=== PATIENT | male | born 1950 | race Caucasian/White ===

== ENCOUNTER → 2019-07-19 15:06 | Outpatient (ROUT) | payer MEDICARE, OTHER, SELFPAY ==
[2019-07-19 15:27] LABS: Aspartate Aminotransferase 46 IU/L (17-59); BUN Creatinine Ratio 28.8 (6-22); Blood Urea Nitrogen 23 mg/dL (9-20); Calcium 9.7 mg/dL (8.4-10.2); Carbon Dioxide 30 mmol/L (22-32); Chloride 103 mmol/L (98-107); Cholesterol 142 mg/dL (140-199); Estimated Glomerular Filt Rate > 60.0 mL/min (>60); Glucose 85 mg/dL (80-110); HDL Cholesterol 61 mg/dL (40-60); HEMOLYSIS < 15 (0-50); LDL Cholesterol Calculated 67 mg/dL (<100); Potassium 4.5 mmol/L (3.4-5.1); Sodium 140 mmol/L (137-145); Triglycerides 68 mg/dL (35-150)
[2019-07-19 15:58] LABS: Prostate Specific Antigen 0.958 ng/mL (0.10-4.00)
== END ==
PROVIDERS: PCP Internal Medicine; Visit Provider Internal Medicine
DX: N40.0 Benign prostatic hyperplasia without lower urinary tract symptoms (principal); E78.2 Mixed hyperlipidemia; I10 Essential (primary) hypertension
CPT/HCPCS: 80048; 80061; 84153; 84450

== ENCOUNTER → 2020-07-23 14:55 | Outpatient (ROUT) | payer MEDICARE, OTHER, SELFPAY ==
[2020-07-23 15:28] LABS: Aspartate Aminotransferase 43 IU/L (17-59); Blood Urea Nitrogen 22 mg/dL (9-20); Calcium 9.4 mg/dL (8.4-10.2); Carbon Dioxide 28 mmol/L (22-32); Chloride 105 mmol/L (98-107); Cholesterol 143 mg/dL (140-199); Estimated Glomerular Filt Rate > 60.0 mL/min (>60); Glucose 96 mg/dL (80-110); HDL Cholesterol 64 mg/dL (40-60); HEMOLYSIS < 15 (0-50); LDL Cholesterol Calculated 67 mg/dL (<100); Potassium 4.7 mmol/L (3.4-5.1); Sodium 138 mmol/L (137-145); Triglycerides 60 mg/dL (35-150)
[2020-07-23 15:56] LABS: Prostate Specific Antigen 0.933 ng/mL (0.10-4.00)
== END ==
PROVIDERS: PCP Internal Medicine; Visit Provider Internal Medicine
DX: I10 Essential (primary) hypertension (principal); E78.2 Mixed hyperlipidemia; N40.0 Benign prostatic hyperplasia without lower urinary tract symptoms
CPT/HCPCS: 80048; 80061; 84153; 84450

== ENCOUNTER → 2022-07-26 08:48 | Outpatient (CLI) | payer MEDICARE, OTHER, SELFPAY ==
[2022-07-26 10:57] LABS: Hematocrit 47.3 % (41-53); Hemoglobin 16.1 g/dL (13.5-17.5); Mean Corpuscular HGB Conc 34.1 % (30-36); Mean Corpuscular Hemoglobin 31.5 PG (26-34); Mean Corpuscular Volume 92.6 fL (80-100); Platelet Count 174 X10^3/uL (150-400); Red Blood Cell Count 5.11 X10^6/uL (4.5-5.9); Red Cell Distribution Width 13.5 % (11.6-14.8); White Blood Cell Count 4.5 X10^3/uL (4.5-11.0)
[2022-07-26 11:31] LABS: Alanine Aminotransferase 27 IU/L (<50); Albumin 4.4 g/dL (3.5-5.0); Albumin Globulin Ratio 1.6 (1.0-2.8); Alkaline Phosphatase 103 U/L (38-126); Aspartate Aminotransferase 33 IU/L (17-59); BUN Creatinine Ratio 19.4 (6-22); Bilirubin Total 0.6 mg/dL (0.2-1.3); Blood Urea Nitrogen 18 mg/dL (9-20); Calcium 9.3 mg/dL (8.4-10.2); Carbon Dioxide 28 mmol/L (22-32); Chloride 102 mmol/L (98-107); Cholesterol 170 mg/dL (140-199); Estimated Glomerular Filt Rate > 60 mL/min (>60); Globulin 2.7 g/dL (1.7-4.1); Glucose 100 mg/dL (80-110); HDL Cholesterol 79 mg/dL (40-60); HEMOLYSIS < 15 (0-50); LDL Cholesterol Calculated 74 mg/dL (<100); Potassium 4.2 mmol/L (3.4-5.1); Sodium 139 mmol/L (137-145); Total Protein 7.1 g/dL (6.3-8.2); Triglycerides 85 mg/dL (35-150)
[2022-07-26 12:00] LABS: Prostate Specific Antigen 1.25 ng/mL (0.10-4.00)
[2022-07-26 12:02] LABS: TSH w/ Reflex to FT4 1.22 uIU/mL (0.47-4.68)
[2022-07-28 06:36] LABS: PSA Free % 44.6 % (.); PSA, Total 1.3 ng/mL (0.0-4.0)
== END ==
PROVIDERS: PCP Internal Medicine; Referring Provider Internal Medicine; Visit Provider Internal Medicine
DX: E78.2 Mixed hyperlipidemia (principal); N40.0 Benign prostatic hyperplasia without lower urinary tract symptoms; Z12.5 Encounter for screening for malignant neoplasm of prostate; R03.0 Elevated blood-pressure reading, without diagnosis of hypertension
CPT/HCPCS: 36415; 80053; 80061; 84153; 84154; 84443; 85027

== ENCOUNTER 2023-04-07 20:13 | Observation (INO) | payer MEDICARE, OTHER, SELFPAY ==
[2023-04-07] VITALS (8 sets, daily range): BP systolic 134–174; BP diastolic 79–114; PULSE 46–97; RESP 12–18; TEMP 37; O2SAT 94–99; BMI 25.8
--- NOTE | 2023-04-07 20:27 | DI.RAD.S_ITS ---
PROCEDURE: XR CHEST 1V INDICATIONS: chest pain TECHNIQUE: One view of the chest was acquired. COMPARISON: None. FINDINGS: Surgical changes and devices: None. Lungs and pleura: Lungs are clear. No pleural effusions or pneumothorax. Mediastinum: Mediastinal contours appear normal. Heart size is normal. Bones and chest wall: No suspicious bony lesions. Overlying soft tissues appear unremarkable. IMPRESSION: No acute cardiopulmonary findings. Dictated by: Nissa Colindres M.D. on 04/07/2023 at 21:59 Approved by: Nissa Colindres M.D. on 04/07/2023 at 22:00
[2023-04-07] MEDS: ASPIRIN 81 MG CHEW TAB 324 MG PO (20:32)
[2023-04-07 20:52] LABS: Add Manual Diff / Slide Review NO; Basophils Absolute Auto 0 /uL (0-100); Basophils Percent Auto 0.9 % (0-2); Eosinophils Absolute Auto 200 /uL (0-450); Eosinophils Percent Auto 3.7 % (2-4); Hematocrit 45.6 % (41-53); Hemoglobin 15.5 g/dL (13.5-17.5); Lymphocytes Absolute Auto 1500 /uL (1100-4500); Lymphocytes Percent Auto 33.8 % (25-40); Mean Corpuscular Hemoglobin 31.4 PG (26-34); Mean Corpuscular Volume 92.3 fL (80-100); Monocytes Absolute Auto 500 /uL (0-900); Monocytes Percent Auto 11.5 % (3-14); Neutrophils Absolute Auto 2200 /uL (1500-7000); Neutrophils Percent Auto 50.1 % (50-75); Platelet Count 198 X10^3/uL (150-400); Red Blood Cell Count 4.94 X10^6/uL (4.5-5.9); Red Cell Distribution Width 13.7 % (11.6-14.8); White Blood Cell Count 4.4 X10^3/uL (4.5-11.0)
[2023-04-07 20:55] LABS: INR 1.1 (0.9-1.3); Prothrombin Time 12.2 SECONDS (10.1-12.7)
[2023-04-07 21:00] LABS: Alanine Aminotransferase 26 IU/L (<50); Albumin Globulin Ratio 1.3 (1.0-2.8); Alkaline Phosphatase 94 U/L (38-126); Aspartate Aminotransferase 32 IU/L (17-59); BUN Creatinine Ratio 28.1 (6-22); Bilirubin Total 0.6 mg/dL (0.2-1.3); Blood Urea Nitrogen 25 mg/dL (9-20); Carbon Dioxide 29 mmol/L (22-32); Chloride 104 mmol/L (98-107); Creatine Kinase 113 U/L (55-170); Estimated Glomerular Filt Rate > 60 mL/min (>60); Globulin 3.2 g/dL (1.7-4.1); Glucose 132 mg/dL (80-110); HEMOLYSIS 37 (0-50); Lipase 68 U/L (23-300); Potassium 4.2 mmol/L (3.4-5.1); Sodium 139 mmol/L (137-145); Total Protein 7.2 g/dL (6.3-8.2)
[2023-04-07 21:11] LABS: Troponin I < 0.012 ng/mL (0.01-0.034)
[2023-04-07 21:15] LABS: PTT Partial Thromboplastin Tim 36 SECONDS (26-36)
--- NOTE | 2023-04-07 22:16 | ED.ARRPALP ---
HPI - Arrhythmia/Palpitations General Chief Complaint: Arrhythmia/Palpitations Stated Complaint: states developed a heart arrythmia Time Seen by Provider: 04/07/23 21:55 Source: patient and family Mode of arrival: Ambulatory History of Present Illness HPI narrative: Patient here with . Complains of palpitations that started possibly around 3:00 a.m. today. However he is uncertain that he had symptoms in the past week. Denies any chest pain or dyspnea. No dizziness or syncope. Denies any history heart attack strokes or diabetes. No history arrhythmia. Related Data Previous Rx's Medication Instructions Recorded rosuvastatin 10 mg tablet 10 mg PO DAILY #90 tabs 09/06/22 Allergies Allergy/AdvReac Type Severity Reaction Status Date / Time No Known Drug Allergies Allergy Verified 04/07/23 20:26 Review of Systems Review of Systems Narrative: GENERAL: negative chills, fatigue, malaise, fever, sweats. HEENT: negative sinus pain, ear pain, sore throat RESPIRATORY: negative dyspnea, cough CARDIOVASCULAR: negative chest pain, positive palpitations GASTROINTESTINAL: negative nausea, vomiting, abdominal pain : negative dysuria, frequency, hematuria MUSCULOSKELETAL: negative muscle or bony pain SKIN: negative rash, skin lesions NEUROLOGIC: negative weakness, numbness ROS Unobtainable: All systems reviewed & are unremarkable except as noted in HPI and below Patient History Medical History Actinic keratoses Cataracts, bilateral (~2015) Elevated blood pressure reading without diagnosis of hypertension History of colonic polyps History of DVT (deep vein thrombosis) (~2017) Medicare annual wellness visit, initial Mixed hyperlipidemia Surgical History Anesthesia H/O right knee surgery (~2015) Right patella fracture (~1960) Right patella fracture (~2017) Social History 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 EYES: Pupils equal round ENT: Mucous membranes moist. NECK: Trachea midline. CARDIOVASCULAR: Regular rate and rhythm without murmurs RESPIRATORY: Clear to auscultation. Breath sounds equal bilaterally. No wheezes, rales, or rhonchi. GASTROINTESTINAL: Abdomen soft, non-tender EXTREMITIES: No gross deformities. BACK: No flank tenderness. NEURO: AOx4. SKIN: Warm and dry PSYCH: Not anxious, is cooperative Initial Vital Signs Initial Vital Signs: Vital Signs Temperature 98.6 F 04/07/23 20:23 Pulse Rate 97 H 04/07/23 20:23 Respiratory Rate 18 04/07/23 20:23 Blood Pressure 164/114 H 04/07/23 20:23 Pulse Oximetry 99 04/07/23 20:23 Oxygen Delivery Method Room Air 04/07/23 20:23 Course Orders Ordered: ED Orders 04/07/23 20:27 XR chest 1V Stat EKG-12 Lead Stat 04/07/23 20:37 Complete Blood Count AUTO DIFF Stat Comprehensive Metabolic Panel Stat Lipase Stat Magnesium Stat PTT Partial Thromboplastin Eric Stat Prothrombin Time INR Stat Troponin & CK Cardiac Panel Stat Acetaminophen (Acetaminophen 325 Mg Tablet) 650 mg PO Q6H PRN PRN Reason: Fever/Mild Pain (1-10 Hydrocodone Bitart/Acetaminophen (Hydrocodone/Acet 5/325 Tablet) 2 tab PO Q4H PRN PRN Reason: Pain, Severe (5-10 Al Hydrox/Mg Hydrox/Simethicone (Mag Hydrox/Alum/Simeth 30 Ml Udc) 30 ml PO Q6HR PRN PRN Reason: Dyspepsia Apixaban (Apixaban 5 Mg Tablet) 5 mg PO BID [facility] Atorvastatin Calcium (Atorvastatin 20 Mg Tablet) 20 mg PO DAILY [facility] Calcium Carbonate (Calcium Carbonate 500 Mg Tab) 1,000 mg PO Q4HR PRN PRN Reason: Dyspepsia Naloxone HCl (Naloxone 0.4 Mg/Ml Vial) 0.2 mg IV Q2MIN PRN PRN Reason: Opiate Reversal Ondansetron HCl (Ondansetron 4 Mg/2 Ml Inj) 4 mg IV Q8HR PRN PRN Reason: Nausea And Vomiting Sennosides (Sennosides 8.6 Mg Tablet) 17.2 mg PO BEDTIME [facility] Discontinued Medications Aspirin (Aspirin 81 Mg Chew Tab) 324 mg PO NOW ONE Stop: 04/07/23 20:28 Last Admin: 04/07/23 20:32 Dose: 324 mg Documented By: AMU Vital Signs Vital signs: Vital Signs - 8 hr 04/07/23 20:23 04/07/23 21:34 04/07/23 21:35 Temperature 98.6 F Pulse Rate 97 H 69 49 L Respiratory Rate 18 13 13 Blood Pressure 164/114 H Pulse Oximetry 99 99 99 Oxygen Delivery Method Room Air 04/07/23 21:35 04/07/23 22:00 04/07/23 22:00 Temperature Pulse Rate 70 Respiratory Rate 16 Blood Pressure 152/84 H 162/104 H Pulse Oximetry 98 Oxygen Delivery Method 04/07/23 22:18 04/07/23 22:18 04/07/23 22:30 Temperature Pulse Rate 81 Respiratory Rate 12 Blood Pressure 174/97 H 147/79 H Pulse Oximetry 98 Oxygen Delivery Method 04/07/23 22:30 04/07/23 23:00 04/07/23 23:00 Temperature Pulse Rate 48 L 46 L Respiratory Rate 14 14 Blood Pressure 134/83 Pulse Oximetry 94 94 Oxygen Delivery Method 04/07/23 23:30 04/07/23 23:30 Temperature Pulse Rate 72 Respiratory Rate 15 Blood Pressure 135/88 Pulse Oximetry 96 Oxygen Delivery Method MDM - Arrhythmia/Palpitations Lab Data 04/07/23 20:37 04/07/23 20:37 Labs: Lab Results 04/07/23 04/07/23 04/07/23 Range/Units 20:37 20:37 20:37 WBC 4.4 L (4.5-11.0) X10^3/uL RBC 4.94 (4.5-5.9) X10^6/uL Hgb 15.5 (13.5-17.5) g/dL Hct 45.6 (41-53) % MCV 92.3 (80-100) fL MCH 31.4 (26-34) PG MCHC 34.0 (30-36) % RDW 13.7 (11.6-14.8) % Plt Count 198 (150-400) X10^3/uL Neut % (Auto) 50.1 (50-75) % Lymph % (Auto) 33.8 (25-40) % Archuleta % (Auto) 11.5 (3-14) % Eos % (Auto) 3.7 (2-4) % Baso % (Auto) 0.9 (0-2) % Neut # (Auto) 2200 (8254-7497) /uL Lymph # (Auto) 1500 (1207-5609) /uL Archuleta # (Auto) 500 (0-900) /uL Eos # (Auto) 200 (0-450) /uL Baso # (Auto) 0 (0-100) /uL PT 12.2 (10.1-12.7) SECONDS INR 1.1 (0.9-1.3) APTT 36 (26-36) SECONDS Sodium 139 (137-145) mmol/L Potassium 4.2 (3.4-5.1) mmol/L Chloride 104 (98-107) mmol/L Carbon Dioxide 29 (22-32) mmol/L BUN 25 H (9-20) mg/dL Creatinine 0.89 (0.66-1.25) mg/dL Estimated GFR > 60 (>60) mL/min BUN/Creatinine Ratio 28.1 H (6-22) Glucose 132 H (80-110) mg/dL Calcium 9.0 (8.4-10.2) mg/dL Magnesium 2.0 (1.6-2.3) mg/dL Total Bilirubin 0.6 (0.2-1.3) mg/dL AST 32 (17-59) IU/L ALT 26 (<50) IU/L Alkaline Phosphatase 94 (38-126) U/L Total Creatine Kinase 113 (55-170) U/L Troponin I < 0.012 (0.01-0.034) ng/mL NT-Pro-B Natriuret Pep (<125) pg/mL Total Protein 7.2 (6.3-8.2) g/dL Albumin 4.0 (3.5-5.0) g/dL Globulin 3.2 (1.7-4.1) g/dL Albumin/Globulin Ratio 1.3 (1.0-2.8) Lipase 68 (23-300) U/L TSH (0.47-4.68) uIU/mL Free T4 (0.78-2.19) ng/dL Ethyl Alcohol ( - 10) mg/dL 04/07/23 04/07/23 04/07/23 Range/Units 20:37 20:37 20:37 WBC (4.5-11.0) X10^3/uL RBC (4.5-5.9) X10^6/uL Hgb (13.5-17.5) g/dL Hct (41-53) % MCV (80-100) fL MCH (26-34) PG MCHC (30-36) % RDW (11.6-14.8) % Plt Count (150-400) X10^3/uL Neut % (Auto) (50-75) % Lymph % (Auto) (25-40) % Archuleta % (Auto) (3-14) % Eos % (Auto) (2-4) % Baso % (Auto) (0-2) % Neut # (Auto) (3345-3438) /uL Lymph # (Auto) (6507-1765) /uL Archuleta # (Auto) (0-900) /uL Eos # (Auto) (0-450) /uL Baso # (Auto) (0-100) /uL PT (10.1-12.7) SECONDS INR (0.9-1.3) APTT (26-36) SECONDS Sodium (137-145) mmol/L Potassium (3.4-5.1) mmol/L Chloride (98-107) mmol/L Carbon Dioxide (22-32) mmol/L BUN (9-20) mg/dL Creatinine (0.66-1.25) mg/dL Estimated GFR (>60) mL/min BUN/Creatinine Ratio (6-22) Glucose (80-110) mg/dL Calcium (8.4-10.2) mg/dL Magnesium (1.6-2.3) mg/dL Total Bilirubin (0.2-1.3) mg/dL AST (17-59) IU/L ALT (<50) IU/L Alkaline Phosphatase (38-126) U/L Total Creatine Kinase (55-170) U/L Troponin I (0.01-0.034) ng/mL NT-Pro-B Natriuret Pep 401 H (<125) pg/mL Total Protein (6.3-8.2) g/dL Albumin (3.5-5.0) g/dL Globulin (1.7-4.1) g/dL Albumin/Globulin Ratio (1.0-2.8) Lipase (23-300) U/L TSH 0.789 (0.47-4.68) uIU/mL Free T4 1.02 (0.78-2.19) ng/dL Ethyl Alcohol < 10 ( - 10) mg/dL Imaging Data Chest x-ray: Radiologist's Impresson: [address] [address] XRay Report Signed Patient: Amrik Ramirez MR#: [id number] : 1950 Acct:[id number] Age/Sex: 72 / M Date of Service: 04/07/23 Loc: ED Accession Number: [id number] ?? Procedure: XR chest 1V Ordering Provider: John Bustamante MD PROCEDURE:? XR CHEST 1V ? INDICATIONS:? chest pain ? TECHNIQUE:? One view of the chest was acquired.? ? COMPARISON:? None. ? FINDINGS:? ? Surgical changes and devices:? None.? ? Lungs and pleura:? Lungs are clear.? No pleural effusions or pneumothorax.? ? Mediastinum:? Mediastinal contours appear normal.? Heart size is normal.? ? Bones and chest wall:? No suspicious bony lesions.? Overlying soft tissues appear unremarkable.? ? IMPRESSION:? No acute cardiopulmonary findings. ? ? Dictated by: Nissa Colindres M.D. on 04/07/2023 at 21:59 ? ? Approved by: Nissa Colindres M.D. on 04/07/2023 at 22:00 ? [facility] Narrative Medical decision making narrative: Patient here with . Complains of palpitations that started possibly around 3:00 a.m. today. However he is uncertain that he had symptoms in the past week. Denies any chest pain or dyspnea. No dizziness or syncope. Denies any history heart attack strokes or diabetes. No history arrhythmia. After history and exam CBC CMP EKG troponin magnesium lipase chest x-ray cardiology consult MDM CC: Palpitations Complicating co-morbidities: None Data collected from: Patient and Medical records reviewed: No recent visits for this complaint Differential considered: Includes but not limited to atrial flutter atrial fibrillation SVT Exam documented above, pertinent findings include: Nontender chest Lab Test results independently reviewed as above. Pertinent findings: WBC 4.4 hemoglobin 15.5 INR 1.1 sodium 139 potassium 4.2 GFR greater than 60 troponin less than 0.012 Independently reviewed EKG atrial flutter with ventricular rate 81. Likely AV block. Imaging studies independently reviewed: Chest x-ray no acute process Consultations: 10:15 p.[address].. Spoke with cardiology Dr. Glass. Would not do cardioversion at this time as we do not no definitive time of onset. May be greater than 24 hours. Recommends Eliquis. Echo in the morning. Can set up for outpatient TAMIR cardioversion after office visit. Would need metoprolol succinate only if increase in heart rate. 11:50 p.m.. Spoke with hospitalist nurse practitioner, Cornelia, she will see patient for admission. Agrees no beta-blockers at this time. Treatments: Eliquis Re-evaluations: Reviewed results with patient and and my discussion with Cardiology and he does agree for admission and balance of treatment and evaluation Discussion: Upright for admission for echocardiogram in the morning and observation and starting Eliquis. Diagnosis: New onset atrial flutter Discharge Plan Departure Patient Disposition: Admitted as Observation Clinical Impression: Atrial flutter Admit Date/Time: 04/07/23 23:53 Admit Provider: Cornelia Oakley
[2023-04-08] VITALS: BP 151/78; PULSE 46; RESP 15; O2SAT 95
--- NOTE | 2023-04-08 00:17 | DI.ECHO.S_ITS ---
[facility] +---------+ : : [address] [place] : : : : [id number] : : : : Phone: [phone]+ Echocardiogram Report + + :Name: JAZLYN HEMPHILL Study Date: 04/08/2023 Height: 69 in : :[facility] ReadingLocation: Weight: 175 lb : : Gender: Male BSA: 2.0 m2 : :: 1950 Age: 72 yrs BP: 152/90 mmHg: :Reason For Study: Atrial Flutter : :Ordering Physician: GIANNA, : :LISA Performed By: Arlene Abel : :Referring: LISA KATZ : + + Interpretation Summary 1) Mildly increased left ventricular thickness (concentric) with normal size, normal wall motion, and normal systolic function (EF 55-60%). 2) Normal right ventricular size with mildly reduced function. 3) There is mild aortic stenosis (valve area 1.8cm2, mean gradient 4mmHg, severity ratio 0.51). 4) The IVC is dilated (diameter is greater than 2.1 cm) and it collapses less than 50% with a sniff. This suggests a high right atrial pressure of 15 mmHg. 5) No prior Echo available for comparison. Procedure: A two-dimensional transthoracic echocardiogram with color flow and Doppler was performed. The study quality was technically difficult. The patient appears to have pectus excavatum. A contrast injection of Definity was performed to improve assessment of LV function. The patient was in atrial flutter with heart rates between 60 bpm during the exam. Left Ventricle: The left ventricle is normal in size. There is mild concentric left ventricular hypertrophy. The ejection fraction is estimated to be 55-60%. Left ventricular systolic function appears normal without focal wall motion abnormalities. Diastolic function could not be accurately assessed due to atrial flutter. Right Ventricle: The right ventricle is normal size. Right ventricular systolic function is mildly reduced. Atria: The left atrial size is normal. Right atrial size is normal. There is no Doppler evidence for an interatrial shunt. Mitral Valve: The mitral valve leaflets appear mildly thickened, but open well. There is no mitral valve stenosis. There is no mitral regurgitation noted. Aortic Valve: The aortic valve is not well visualized. There is mild aortic stenosis. No aortic regurgitation is present. Tricuspid Valve: The tricuspid valve is normal. There is no tricuspid stenosis. There is trace tricuspid regurgitation. Pulmonary artery pressures cannot be estimated because of the lack of a measurable TR jet velocity. Pulmonic Valve: The pulmonic valve is not well visualized. There is no pulmonic valvular stenosis. There is no pulmonic valvular regurgitation. Great Vessels: The aortic root is mildly dilated. The ascending aorta is normal in size. The pulmonary artery is normal size. The IVC is dilated (diameter is greater than 2.1 cm) and it collapses less than 50% with a sniff. This suggests a high right atrial pressure of 15 mm Hg. Pericardium/ Pleura There is no pericardial effusion. MMode/2D Measurements & Calculations LVIDd: 4.3 cm LVOT diam: 2.1 cm LVIDs: 4.0 cm Ao root diam: 3.9 cm FS: 7.0 % asc Aorta Diam: 3.4 cm IVSd: 1.4 cm LVPWd: 1.2 cm LV funk. diameter/BSA (cm/m^2): 2.2 LV sys. diameter/BSA (cm/m^2): 2.0 LA A4 area: 8.8 cm2 RA long axis: 4.7 cm RA area: 13.3 cm2 RA vol: 32.3 ml RA : 16.5 ml/m2 RVD1 (basal): 3.6 cm LVLs ap4: 6.4 cm LVLd ap2: 7.1 cm TAPSE_phl: 1.3 cm LVLs ap2: 5.9 cm Doppler Measurements & Calculations Ao V2 max: 141.0 cm/sec LVOT Max Rogelio: 67.9 cm/sec Ao V2 mean: 99.0 cm/sec LV V1 max P.8 mmHg Ao max P.0 mmHg LV V1 VTI: 13.6 cm Ao mean P.0 mmHg AZIZA(I,D): 1.8 cm2 Ao V2 VTI: 26.6 cm AZIZA(V,D): 1.7 cm2 sev ratio: 0.51 AZIZA indexed to BSA (cm^2/m^2): 0.92 MV E max rogelio: 84.0 cm/sec SV(LVOT): 47.8 ml MV A max rogelio: 54.4 cm/sec MV E/A: 1.5 MV dec time: 0.11 sec AV VR_phl: 0.48 MV P1/2t-pr_phl: 34.0 msec AZIZA(VTI)/BSA_phl: 0.74 Reading Physician:12:14 PM
[2023-04-08 00:24] VITALS: BP 151/78; PULSE 52; RESP 16; TEMP 36.3; O2SAT 96
--- NOTE | 2023-04-08 00:31 | P.HP_ITS ---
History of Present Illness History of Present Illness Date Patient Seen: 04/08/23 Time Patient Seen: 00:32 Chief complaint: Atrial Flutter Narrative: Amrik Ramirez 72 male with a history of hyperlipidemia takes rosuvastatin, no other cardiac or pulmonary history. Presented to the ED complaining of palpitations that started possibly around 3:00 a.m. today.? However he is uncertain that he had symptoms in the past week.? Denies any other associated symptoms, chest pain, dyspnea, dizziness, syncope.? Denies any history heart attack strokes or diabetes.? No history arrhythmia. On admit patient denies chest pain, shortness in breath, headache, changes in v ision, difficulty swallowing, speech impairment, weakness, numbness, tingling, difficulty with ambulation, recent falls, head injury, LOC, fever, body aches, chills, cough, recent exposure to illness, abdominal pain, nausea, vomiting, urinary incontinence/retention, dysuria, frequency, urgency, hematuria, bowel changes, constipation, incontinence, melena, rashes, recent changes to medication, illness, injury, or trauma. Patient's vitals are stable 135/88, 72, 15, 96% on room air. Patient is as ymptomatic no distress. WBC 4.4, BUN 25, glucose 132, troponins are negative, chest x-ray are negative, EKG atrial flutter with a ventricular rate of 81, possible AV block. Patient admitted for new onset atrial flutter. 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 Exam Vital Signs (past 8 hours): - 04/07/23 20:23 04/07/23 21:34 04/07/23 21:35 Temperature 98.6 F Pulse Rate 97 H 69 49 L Respiratory Rate 18 13 13 Blood Pressure 164/114 H Pulse Oximetry 99 99 99 Oxygen Delivery Method Room Air 04/07/23 21:35 04/07/23 22:00 04/07/23 22:00 Temperature Pulse Rate 70 Respiratory Rate 16 Blood Pressure 152/84 H 162/104 H Pulse Oximetry 98 Oxygen Delivery Method 04/07/23 22:18 04/07/23 22:18 04/07/23 22:30 Temperature Pulse Rate 81 Respiratory Rate 12 Blood Pressure 174/97 H 147/79 H Pulse Oximetry 98 Oxygen Delivery Method 04/07/23 22:30 04/07/23 23:00 04/07/23 23:00 Temperature Pulse Rate 48 L 46 L Respiratory Rate 14 14 Blood Pressure 134/83 Pulse Oximetry 94 94 Oxygen Delivery Method 04/07/23 23:30 04/07/23 23:30 04/08/23 00:00 Temperature Pulse Rate 72 Respiratory Rate 15 Blood Pressure 135/88 151/78 H Pulse Oximetry 96 Oxygen Delivery Method 04/08/23 00:00 04/08/23 00:24 Temperature 97.4 F L Pulse Rate 46 L 52 L Respiratory Rate 15 16 Blood Pressure 151/78 H Pulse Oximetry 95 96 Oxygen Delivery Method Room Air Oxygen Delivery Method Room Air Narrative Exam Narrative: General: Patient is a well-developed, well-nourished in no distress at this time. HEENT: Normocephalic, atraumatic, extraocular muscles intact, oral pharynx is clear and mucous membranes are moist. Neck is supple and symmetric, trachea is midline, no adenopathy, no thyroid enlargement, nontender, no masses palpated. Negative for JVD Chest: Normal AP diameter and contour without kyphoscoliosis, Equal chest rise without nasal flaring, retractions, tachypneic or labored breathing. Lungs: Auscultation of all lung bassett are clear without adventitious sounds, wheezes, rhonchi, or rales. Cardio: Bradycardic irregular rate and rhythm without murmur, rubs, or gallops, no carotid bruit, no cardiac pulsations present. Abdomen: Soft nontender, negative for organomegaly, or masses. Bowel sounds are present in all 4 quadrants without guarding or rebound, no CVA tenderness. Musculoskeletal: Muscle strength and tone are equal, no deformity, crepitus, effusions, cyanosis, clubbing or edema present. Full range of motion intact radial and pedal pulses are normal. Skin: Warm dry and intact without rashes, ulcerations or petechiae. Neuro: Alert and orientated x3, moves all extremities, sensation to touch intact, no gross deficits noted of cranial nerves. Psych: Patient has a well-kept appearance, appropriate affect, mental status attitude thought context and judgment are appropriate for age. Objective Labs 04/07/23 20:37 04/07/23 20:37 Labs: Laboratory Results - last 24 hr 04/07/23 04/07/23 04/07/23 20:37 20:37 20:37 WBC 4.4 L RBC 4.94 Hgb 15.5 Hct 45.6 MCV 92.3 MCH 31.4 MCHC 34.0 RDW 13.7 Plt Count 198 Neut % (Auto) 50.1 Lymph % (Auto) 33.8 Ritchie % (Auto) 11.5 Eos % (Auto) 3.7 Baso % (Auto) 0.9 Neut # (Auto) 2200 Lymph # (Auto) 1500 Ritchie # (Auto) 500 Eos # (Auto) 200 Baso # (Auto) 0 PT 12.2 INR 1.1 APTT 36 Sodium 139 Potassium 4.2 Chloride 104 Carbon Dioxide 29 BUN 25 H Creatinine 0.89 Estimated GFR > 60 BUN/Creatinine Ratio 28.1 H Glucose 132 H Calcium 9.0 Magnesium 2.0 Total Bilirubin 0.6 AST 32 ALT 26 Alkaline Phosphatase 94 Total Creatine Kinase 113 Troponin I < 0.012 Total Protein 7.2 Albumin 4.0 Globulin 3.2 Albumin/Globulin Ratio 1.3 Lipase 68 Assessment & Plan Assessment & Plan narrative: 72-year-old male with a history of hyperlipidemia, presents for new onset atrial flutter rate controlled. Atrial flutter, acute, new, present on admission * EKG atrial flutter with a ventricular rate of 81, possible AV block. * Consult Dr. Glass Cardiology * Patient placed on Eliquis, overnight telemetry * Echo tomorrow * Patient to schedule with PCP Dr. Niño- referral for TAMIR * Ordered TSH, T4, ETOH, BNP * Initial troponin negative will trend x3 Hypertensive urgency, without the diagnosis of hypertension, acute, present on admission * ED: 164/114 * Admit: 135/88-resolved Hyperlipidemia, chronic, present on admission * Continue statin Leukopenia, chronic, present on admission * WBC 4.4 * Documented in chart as far back as 2017: WBC 4.2 Code status: Full Surrogate decision maker: Shelly Ramirez DVT/VTE prophylaxis: Brielle Recio Disposition: Patient admitted for observation expected length of stay not to exceed 2 midnights. I have utilized all available immediate resources to obtain, update, or review the patient's current medications. I confirmed that the patient's advanced care plan is present, Code status is documented and/or surrogate decision maker is listed in the patient's medical record. I have personally reviewed patient's chart notes from PCP, specialists, diagnostic imaging, and laboratory results.
[2023-04-08 00:38] VITALS: BMI 25.8
[2023-04-08 00:45] VITALS: BP 152/90; PULSE 57; RESP 18; TEMP 36.2; O2SAT 100
--- NOTE | 2023-04-08 01:10 | PC.NURSE ---
0032: Pt arrived to room 221 accompanied by ocean freight manager; pt ambulated well with no assistance from ED to acute care unit. Pt is AAO x 4, VSS. Pulses irregular; showing A-flutter on telemetry. Pt denies c/p, headache, palpitations at this time. Pt was oriented to room, unit, RN, CULINARY SPECIALIST, and was updated on POC and plan for ECHO in the morning. Pt was instructed to call for assistance using call light; pt verbalized understanding; call light is within reach.
[2023-04-08 01:15] LABS: Ethanol (ETOH) < 10 mg/dL
[2023-04-08 01:17] LABS: NT-proBNP (BNP-Adult 18+) 401 pg/mL (<125)
[2023-04-08 01:37] LABS: Free T4, Direct Thyroxine 1.02 ng/dL (0.78-2.19)
[2023-04-08 01:51] LABS: Thyroid Stimulating Hormone 0.789 uIU/mL (0.47-4.68)
[2023-04-08 04:00] VITALS: BP 140/94; PULSE 59; RESP 16; TEMP 36.3; O2SAT 98
[2023-04-08 05:02] LABS: BUN Creatinine Ratio 26.2 (6-22); Blood Urea Nitrogen 22 mg/dL (9-20); Calcium 8.8 mg/dL (8.4-10.2); Carbon Dioxide 27 mmol/L (22-32); Chloride 107 mmol/L (98-107); Cholesterol 131 mg/dL (140-199); Estimated Glomerular Filt Rate > 60 mL/min (>60); Glucose 92 mg/dL (80-110); HDL Cholesterol 54 mg/dL (40-60); HEMOLYSIS < 15 (0-50); LDL Cholesterol Calculated 65 mg/dL (<100); Potassium 4.1 mmol/L (3.4-5.1); Sodium 138 mmol/L (137-145); Triglycerides 60 mg/dL (35-150)
[2023-04-08 05:14] LABS: Troponin I < 0.012 ng/mL (0.01-0.034)
[2023-04-08 08:00] VITALS: BP 139/93; PULSE 47; RESP 17; TEMP 36.2; O2SAT 96
[2023-04-08] MEDS: ATORVASTATIN 20 MG TABLET PO (08:26)
[2023-04-08] MEDS: APIXABAN 5 MG TABLET PO (08:26)
[2023-04-08 09:21] LABS: UR Morphine/Opiate cutoff 300 Negative (Negative); Ur Creatinine Normal (Normal); Ur Specific Gravity Normal (Normal); Urine Amphetamines Negative (Negative); Urine Barbiturates Negative (Negative); Urine Benzodiazepines Negative (Negative); Urine Cocaine Negative (Negative); Urine MDMA Negative (Negative); Urine Methadone Negative (Negative); Urine Methamphetamines Negative (Negative); Urine Oxycodone Negative (Negative); Urine Phencyclidine Negative (Negative); Urine Tetrahydrocannabinol Negative (Negative); Urine Tricyclic Antidepressant Negative (Negative); Urine pH Normal (Normal)
--- NOTE | 2023-04-08 11:13 | CM.DANOTE ---
DCP Assessment: Patient is a 72yo M here following atrial flutter. PCP: Dr. Niño Payer: Medicare and commercial insurance. REGULATOR TESTER reviewed EMR. REGULATOR TESTER entered room and introduced self and role. Patient was sitting up in bed and appeared A/Ox4. Patient was accompanied by spouse Shelly ([phone]). Patient reports he is active and independent at baseline and drives. Patient reports he will not have any needs from CM team upon discharge. Patient reports his can drive him home after his stress test today. Plan: patient will d/c home with spouse later today after stress test. Likely no needs from CM team but will continue to follow as needed. DANA Donis Discharge Planning/Care Management CM Discharge Assessment Start: 04/08/23 11:12 Freq: Status: Active Protocol: Document 04/08/23 11:12 (Rec: 04/08/23 11:13 [id number]) Discharge Planning Assessment Assigned Commercial Stripper DANA Hollins DPOA/Assigned Designee Name Shelly Ramirez (spouse) Contact Information [phone] Advance Directives? Yes Advance Directives on File Yes History Provided By Patient,Medical Record Prior Living Arrangements House Household Members spouse Type of transporation used prior to Drives own vehicle admit Independent with ADL's Yes Is patient alert and oriented? Yes Barriers to Discharge No Discharge Plan Home Transportation Arrangement spouse in POV Whiteboard Updated in Patient Room with Yes name and ext. # of Commercial Stripper Review Status In Process Next Review Type Continued Stay Review
[2023-04-08 12:00] VITALS: BP 139/83; PULSE 52; RESP 17; TEMP 36.3; O2SAT 97
--- NOTE | 2023-04-08 12:43 | P.DS_ITS ---
History of Present Illness History of Present Illness Date Patient Seen: 04/08/23 Time Patient Seen: 12:44 Chief complaint: Atrial Flutter Narrative: Per admitting provider, Amrik Ramirez 72 male with a history of hyperlipidemia takes rosuvastatin, no other cardiac or pulmonary history. Presented to the ED complaining of palpitations that started possibly around 3:00 a.m. today.? However he is uncertain that he had symptoms in the past week.? Denies any other associated symptoms, chest pain, dyspnea, dizziness, syncope.? Denies any history heart attack strokes or diabetes.? No history arrhythmia. On admit patient denies chest pain, shortness in breath, headache, changes in vision, difficulty swallowing, speech impairment, weakness, numbness, tingling, difficulty with ambulation, recent falls, head injury, LOC, fever, body aches, chills, cough, recent exposure to illness, abdominal pain, nausea, vomiting, urinary incontinence/retention, dysuria, frequency, urgency, hematuria, bowel changes, constipation, incontinence, melena, rashes, recent changes to medication, illness, injury, or trauma. Patient's vitals are stable 135/88, 72, 15, 96% on room air. Patient is asymptomatic no distress. WBC 4.4, BUN 25, glucose 132, troponins are negative, chest x-ray are negative, EKG atrial flutter with a ventricular rate of 81, possible AV block. Patient admitted for new onset atrial flutter. Discharge Providers Provider Date of admission: 04/07/23 23:53 Discharge Date: 04/08/23 Primary care physician: Riki Niño MD Discharge provider: Romario Levi DO Summary Hospital Course Discharge Diagnosis: Atrial flutter, acute, new, present on admission Hypertensive urgency, without the diagnosis of hypertension, acute, present on admission Hyperlipidemia, chronic, present on admission Hospital Course: This is a 72 year old male admitted with palpitations after EKG showed new diagnosis of atrial flutter. He was rate controlled on presentation, and had no symptoms of heart failure. Troponins were negative over the course of his stay. TSH was within normal limits, as was free t4. Cholesterol panel was unremarkable. He was recommended for echocardiogram by the ER provider, admitted overnight. Echocardiogram showed normal EF at 50-55% with mild aortic stenosis and no obvious apical thrombus. He was discharged home on rivaroxaban for anticoagulation. 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 He plans to follow up with his primary care provider for continued management as well. Given he is rate controlled at this time, no additional therapies are needed in addition to anticoagulation. Time Spent with Patient Time spent: Less than 30 minutes Exam Vital Signs (past 8 hours): - 04/08/23 08:00 Temperature 97.1 F L Pulse Rate 47 L Respiratory Rate 17 Blood Pressure 139/93 H Pulse Oximetry 96 Oxygen Flow Rate 0 Oxygen Delivery Method Room Air Oxygen Flow Rate 0 Narrative Exam Narrative: Gen: NAD Pulm: CTA b/l CV: RRR (flutter on monitor), no m/r/g Ext: No edema Objective Labs 04/07/23 20:37 04/08/23 04:37 Labs: Laboratory Results - last 24 hr 04/07/23 04/07/23 04/07/23 20:37 20:37 20:37 WBC 4.4 L RBC 4.94 Hgb 15.5 Hct 45.6 MCV 92.3 MCH 31.4 MCHC 34.0 RDW 13.7 Plt Count 198 Neut % (Auto) 50.1 Lymph % (Auto) 33.8 Hoke % (Auto) 11.5 Eos % (Auto) 3.7 Baso % (Auto) 0.9 Neut # (Auto) 2200 Lymph # (Auto) 1500 Hoke # (Auto) 500 Eos # (Auto) 200 Baso # (Auto) 0 PT 12.2 INR 1.1 APTT 36 Sodium 139 Potassium 4.2 Chloride 104 Carbon Dioxide 29 BUN 25 H Creatinine 0.89 Estimated GFR > 60 BUN/Creatinine Ratio 28.1 H Glucose 132 H Calcium 9.0 Magnesium 2.0 Total Bilirubin 0.6 AST 32 ALT 26 Alkaline Phosphatase 94 Total Creatine Kinase 113 Troponin I < 0.012 NT-Pro-B Natriuret Pep Total Protein 7.2 Albumin 4.0 Globulin 3.2 Albumin/Globulin Ratio 1.3 Triglycerides Cholesterol LDL Cholesterol, Calc HDL Cholesterol Lipase 68 TSH Free T4 U Opiates 300ng/mL cut Ur Oxycodone Screen Urine Methadone Screen Ur Barbiturates Screen U Tricyclic Antidepress Ur Phencyclidine Scrn Ur Amphetamines Screen U Methamphetamines Scrn Ur MDMA Scrn (Ecstasy) U Benzodiazepines Scrn Urine Cocaine Screen U Marijuana (THC) Screen Ethyl Alcohol 04/07/23 04/07/23 04/07/23 20:37 20:37 20:37 WBC RBC Hgb Hct MCV MCH MCHC RDW Plt Count Neut % (Auto) Lymph % (Auto) Hoke % (Auto) Eos % (Auto) Baso % (Auto) Neut # (Auto) Lymph # (Auto) Hoke # (Auto) Eos # (Auto) Baso # (Auto) PT INR APTT Sodium Potassium Chloride Carbon Dioxide BUN Creatinine Estimated GFR BUN/Creatinine Ratio Glucose Calcium Magnesium Total Bilirubin AST ALT Alkaline Phosphatase Total Creatine Kinase Troponin I NT-Pro-B Natriuret Pep 401 H Total Protein Albumin Globulin Albumin/Globulin Ratio Triglycerides Cholesterol LDL Cholesterol, Calc HDL Cholesterol Lipase TSH 0.789 Free T4 1.02 U Opiates 300ng/mL cut Ur Oxycodone Screen Urine Methadone Screen Ur Barbiturates Screen U Tricyclic Antidepress Ur Phencyclidine Scrn Ur Amphetamines Screen U Methamphetamines Scrn Ur MDMA Scrn (Ecstasy) U Benzodiazepines Scrn Urine Cocaine Screen U Marijuana (THC) Screen Ethyl Alcohol < 10 04/08/23 04/08/23 04/08/23 04:37 04:37 08:00 WBC RBC Hgb Hct MCV MCH MCHC RDW Plt Count Neut % (Auto) Lymph % (Auto) Hoke % (Auto) Eos % (Auto) Baso % (Auto) Neut # (Auto) Lymph # (Auto) Hoke # (Auto) Eos # (Auto) Baso # (Auto) PT INR APTT Sodium 138 Potassium 4.1 Chloride 107 Carbon Dioxide 27 BUN 22 H Creatinine 0.84 Estimated GFR > 60 BUN/Creatinine Ratio 26.2 H Glucose 92 Calcium 8.8 Magnesium 2.0 Total Bilirubin AST ALT Alkaline Phosphatase Total Creatine Kinase Troponin I < 0.012 NT-Pro-B Natriuret Pep Total Protein Albumin Globulin Albumin/Globulin Ratio Triglycerides 60 Cholesterol 131 L LDL Cholesterol, Calc 65 HDL Cholesterol 54 Lipase TSH Free T4 U Opiates 300ng/mL cut Negative Ur Oxycodone Screen Negative Urine Methadone Screen Negative Ur Barbiturates Screen Negative U Tricyclic Antidepress Negative Ur Phencyclidine Scrn Negative Ur Amphetamines Screen Negative U Methamphetamines Scrn Negative Ur MDMA Scrn (Ecstasy) Negative U Benzodiazepines Scrn Negative Urine Cocaine Screen Negative U Marijuana (THC) Screen Negative Ethyl Alcohol [facility] Medical History Actinic keratoses Cataracts, bilateral (~2015) Elevated blood pressure reading without diagnosis of hypertension History of colonic polyps History of DVT (deep vein thrombosis) (~2017) Medicare annual wellness visit, initial Mixed hyperlipidemia Surgical History Anesthesia H/O right knee surgery (~2015) Right patella fracture (~196) Right patella fracture (~2017) Social History marital status: details: (Shelly), 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 This is rate controlled, no medications are needed but a blood thinner. Your echocardiogram showed normal function, with mild aortic stenosis. Please follow up with your primary care provider, if you begin to experience palpitat ions and your pulse is fast, you may need to be started on a beta suha or similar medication to improve rate, but at this time there is no need. Discharge orders & Medications Prescriptions: New rivaroxaban 20 mg tablet 20 mg PO QPM 90 Days Qty: 90 0RF Rx Instructions: must administer with evening meal Continued rosuvastatin 10 mg tablet 10 mg PO DAILY Qty: 90 3RF Follow up/Referrals: Riki Niño MD [Primary Care Provider] - Diet/Activity/Treatments Diet: Diet as Tolerated and Regular Activity: As tolerated Visit Report/Discharge Packet Instructions: DI for Atrial Flutter Stand Alone Forms: Patient Portal/API, Stroke Signs & Symptoms Discharge Data Primary Care Provider: Riki Niño V Attending Provider: Cornelia Oakley Admit Date/Time: 04/07/23 23:53 Discharges patient from system. Discharge Date/Time: 04/08/23 13:38
== END 2023-04-08 13:38 | disposition home or self-care (01) ==
LOC: ED 22:26 → AC 23:54
PROVIDERS: Admitting Provider Nurse Practitioner Family; Emergency Provider Emergency Medicine; PCP Internal Medicine; Visit Provider Nurse Practitioner Family
DX: I48.92 Unspecified atrial flutter (principal); E78.5 Hyperlipidemia, unspecified
CPT/HCPCS: 36415; 71045; 80048; 80053; 80061; 80305; 80320; 82550; 83690; 83735; 83880; 84439; 84443; 84484; 85025; 85610; 85730; 93005; 93306; 99284; G0378; Q9957

== ENCOUNTER → 2024-04-13 07:01 | Outpatient (CLI) | payer MEDICARE, OTHER, SELFPAY ==
[2024-04-13 08:31] LABS: Aspartate Aminotransferase 38 IU/L (17-59); BUN Creatinine Ratio 27.4 (6-22); Blood Urea Nitrogen 23 mg/dL (9-20); Calcium 8.8 mg/dL (8.4-10.2); Carbon Dioxide 26 mmol/L (22-32); Chloride 108 mmol/L (98-107); Cholesterol 162 mg/dL (140-199); Estimated Glomerular Filt Rate > 60 mL/min (>60); Glucose 101 mg/dL (80-110); HDL Cholesterol 86 mg/dL (40-60); HEMOLYSIS < 15 (0-50); LDL Cholesterol Calculated 62 mg/dL (<100); Potassium 4.8 mmol/L (3.4-5.1); Sodium 139 mmol/L (137-145); Triglycerides 70 mg/dL (35-150)
[2024-04-13 08:57] LABS: Prostate Specific Antigen 1.21 ng/mL (0.10-4.00)
== END ==
LOC: LAB 07:03
PROVIDERS: PCP Internal Medicine; Referring Provider Internal Medicine; Visit Provider Internal Medicine
DX: I10 Essential (primary) hypertension (principal); I48.92 Unspecified atrial flutter; Z87.898 Personal history of other specified conditions
CPT/HCPCS: 36415; 80048; 80061; 84153; 84450

== ENCOUNTER → 2025-06-24 07:52 | Outpatient (CLI) | payer MEDICARE, OTHER, SELFPAY ==
[2025-06-24 09:22] LABS: Blood Urea Nitrogen 21 mg/dL (9-20); Calcium 9.5 mg/dL (8.4-10.2); Carbon Dioxide 25 mmol/L (22-32); Chloride 102 mmol/L (98-107); Cholesterol 165 mg/dL (140-199); Estimated Glomerular Filt Rate > 60 mL/min (>60); Glucose 100 mg/dL (70-99); HDL Cholesterol 87 mg/dL (40-60); HEMOLYSIS < 15 (0-50); Potassium 4.7 mmol/L (3.4-5.1); Sodium 137 mmol/L (137-145); Triglycerides 60 mg/dL (35-150)
[2025-06-24 09:49] LABS: Prostate Specific Antigen 1.59 ng/mL (0.10-4.00)
== END ==
PROVIDERS: PCP Internal Medicine; Referring Provider Internal Medicine; Visit Provider Internal Medicine
DX: E78.2 Mixed hyperlipidemia (principal); N40.1 Benign prostatic hyperplasia with lower urinary tract symptoms; I48.3 Typical atrial flutter; N13.8 Other obstructive and reflux uropathy
CPT/HCPCS: 36415; 80048; 80061; 84153; 84450